=== PATIENT | female | born 1965 | race Caucasian/White ===

== ENCOUNTER 2017-03-05 06:47 | Observation (INO) | payer OTHER ==
[2017-02-28 14:41] LABS: HEMOGLOBIN 13.4 g/dL (12.0-16.0)
[2017-02-28 14:58] LABS: HEMATOCRIT 38.6 % (36.0-48.0)
--- NOTE | ~2017-03-05 | OP ---
Record Of Operation [facility] [address] [place]. [address] NAME: VITO RENO : 67 STATUS : ADM IN PAT#: [id number] AGE: 51 ADM/REG DATE : 03/05/17 MR#: [id number] REPORT SERV DATE: 03/06/17 DICTATED BY: FAUSTINO LONG II DATE: 03/06/17 REPORT STATUS : Draft TRANSCRIBED BY: MODEmily DATE: 03/06/17 DATE OF PROCEDURE: 03/05/2017 PREOPERATIVE DIAGNOSES: 1. Right upper extremity radiculopathy. 2. C5-6, C6-7 stenosis with degenerative disk disease. POSTOPERATIVE DIAGNOSES: 1. Right upper extremity radiculopathy. 2. C5-6, C6-7 stenosis with degenerative disk disease. PROCEDURE: 1. C5-6, C6-7 total disk replacement. 2. Use of the microscope. SURGEON: Faustino Long M.D. FLUIDS: 1300 mL LR. ESTIMATED BLOOD LOSS: 25 mL. DRAIN: One. COMPLICATIONS: None. IMPLANTS: LDR Mobi-C. PREOPERATIVE HISTORY: This is a very friendly 51-year-old female who reports some neck pain, but predominantly pain radiating into the right periscapular region consistent with radiculopathy. We discussed the pros and cons of surgery. We discussed the risks which include, but are not limited to, injury to the soft tissue structures as well as a chance of stroke. We discussed the risk of hoarseness as well as a potential failure of the implant and need for revision. DESCRIPTION OF PROCEDURE: After informed consent was obtained, the patient was brought to the operating room at her request and general anesthesia achieved. She was placed in the supine position, and the neck and iliac crest were prepped and draped in a sterile fashion. A right-sided approach was now performed, and the retropharyngeal approach completed. The proper levels were radiographically confirmed. The belting inspector retractor was placed underneath the longus colli muscles. [place] pins were placed into C5, C6, and C7. Next, the microscope was brought into place and under microscopic visualization, the diskectomy was initiated at C5-6. The endplates were denuded of their cartilage. The concavity was maintained of C5 according to the surgical technique for this particular implant. The inferior endplate was made to be more parallel. The posterior significant sized osteophytes were now removed using the high-speed bur and the [place] rongeurs and Record Of Operation [facility] [address] [place]. [address] NAME: VITO RENO : 67 STATUS : ADM IN PAT#: [id number] AGE: 51 ADM/REG DATE : 03/05/17 MR#: [id number] REPORT SERV DATE: 03/06/17 DICTATED BY: FAUSTINO LONG II DATE: 03/06/17 REPORT STATUS : Draft TRANSCRIBED BY: TORIBIO DATE: 03/06/17 the curettes. The posterior longitudinal ligament was now removed to fully ensure the adequacy of the foraminotomies. The C6 nerve roots did exhibit compression prior to the foraminotomies. Next, under fluoroscopy, the trialing process was now performed and the appropriate size total disk implant chosen. This was now assembled on the back table and then put into position using standard technique. Imaging confirmed acceptable placement of the implant. Next, the C6-7 level was addressed in a similar manner. The diskectomy was completed, and the endplates prepared using standard technique. Once again, the posterior foraminotomies were now completed and the posterior longitudinal ligament removed. The device was now placed. Following trialing procedure, multiplanar imaging confirmed acceptable placement of both of the total disk replacement implants. The area was now found to be hemostatic except for some very mild cancellous bone bleeding. A deep drain was placed followed by standard closure, and the patient was then extubated and transferred to PACU in stable condition. GWYN/TORIBIO Faustino Long II, M.D. / [id number] CC: Yoandy Walker II, M.D.
[~2017-03-05 06:47] MED LIST: DENIES; MOBIC15 MG PO; NEUR300 PO; NORCO1 TA1 PO; PROZAC40 MG PO; XANAX1 MG PO
[2017-03-06] MEDS ORDERED: PERCOCET 10/3251 TAB PO (10:05)
[2017-03-06] MEDS ORDERED: V5 PO (10:07)
== END 2017-03-06 11:56 | disposition home or self-care (01) ==
LOC: SDC 06:47 → SDC/OF 11:52 → 1SO 12:53
PROVIDERS: Orthopaedic Surgery
PROC: 0PR Upper Bones, Replacement (ICD-10-PCS; principal; 2017-03-05 08:15)
DX: M50.123 Cervical disc disorder at C6-C7 level with radiculopathy (principal); M50.122 Cervical disc disorder at C5-C6 level with radiculopathy; M48.02 Spinal stenosis, cervical region; F17.210 Nicotine dependence, cigarettes, uncomplicated; F32.9 Major depressive disorder, single episode, unspecified; F41.9 Anxiety disorder, unspecified; J45.909 Unspecified asthma, uncomplicated; G43.901 Migraine, unspecified, not intractable, with status migrainosus; Z88.1 Allergy status to other antibiotic agents; Z88.0 Allergy status to penicillin; Z90.49 Acquired absence of other specified parts of digestive tract; Z90.710 Acquired absence of both cervix and uterus; Z98.890 Other specified postprocedural states
CPT/HCPCS: 85014; 85018; 87641; 88304; 88311; 93005; 96374; 96375; 96376; A9270-GY; G0378; J0690; J2250; J2270; J2370; J2405; J2710; J3010; J3370